=== PATIENT | female | born 1990 | race Caucasian/White ===

== ENCOUNTER 2020-05-01 21:59 | Emergency (ER) | payer MEDICAID ==
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
== END 2020-05-02 03:00 | disposition left against medical advice (07) ==
LOC: ER 21:59
DX: Z53.20 Procedure and treatment not carried out because of patient's decision for unspecified reasons (principal); F41.9 Anxiety disorder, unspecified; R51 Headache; W18.00XA Striking against unspecified object with subsequent fall, initial encounter
CPT/HCPCS: 99281